=== PATIENT | female | born 1965 | race Caucasian/White ===

== ENCOUNTER 2017-06-25 18:42 | Emergency (ER) | payer OTHER ==
[2017-06-25] MEDS ORDERED: ONDANSETRON 4 MG/2 ML VIAL IVP ONE (20:21)
[2017-06-25] MEDS ORDERED: ALBUTEROL 3 ML DEYVIAL IH ONE (20:22)
[2017-06-25] MEDS ORDERED: KETOROLAC 30 MG/1 ML SDV IVP ONE (20:27)
[2017-06-25] MEDS ORDERED: METOCLOPRAMIDE 10 MG/2 ML VIAL IVP ONE (20:27)
[2017-06-25] MEDS ORDERED: NS 1,000 ML IV ONE (20:27)
[2017-06-25] MEDS ORDERED: DEXAMETHASONE 10 MG/ML VIAL IVP ONE (20:27)
[2017-06-25] MEDS ORDERED: HYDROmorphONE/DILAUDID 1 MG/ML INJ IVP ONE (21:15)
--- NOTE | 2017-06-25 21:34 | EDPHY ---
H & P Time Seen by Provider: 06/25/17 20:17 HPI/ROS: HPI Headache. 52-year-old female by private vehicle with her . This patient has a long history of migraine headaches. She reports that her headaches usually resolve with Imitrex. She reports atypical gradual onset migraine headache which she describes as frontal and temporal, onset about 3 days ago. She reports that it has been waxing and waning in intensity. She reports that she has taken Imitrex several times for this headache and without resolution. She reports this evening the headache became more intense. She has had to be seen in our emergency department in the past for her headaches. She has had associated nausea and vomiting which is also typical of her migraine headaches. ROS: Constitutional: No fever, no chills. No weakness. Eyes: No discharge. No changes in vision. ENT: No sore throat. No nasal congestion or rhinorrhea. Respiratory: No cough. No shortness of breath. Cardiac: No chest pain, no palpitations. Gastrointestinal: No abdominal pain, as above, no diarrhea. Genitourinary: No hematuria. No dysuria or increased frequency with urination. Musculoskeletal: No back pain. No neck pain. No myalgias or arthralgias. Skin: No rashes. Neurological: As above. No focal weakness or altered sensation. Past medical history: Migraine headaches, hypothyroid. Social history: Here with her . No alcohol. Nonsmoker. Physical Exam: General Appearance: Alert, no distress. This patient is responding to questions appropriately and in full sentences. This patient appears well- hydrated and well-nourished. Eyes: Pupils equal and round no pallor or injection. No lid edema, erythema or injection. Mild photophobia. No nystagmus. Neurological: Motor sensory function is grossly intact. Cranial nerves are normal. Gait is normal. Skin: Warm and dry, no rashes. Musculoskeletal: Neck is supple and nontender. No pain on flexion of the neck. Extremities are symmetrical. All joints range without pain or impingement. Psychiatric: No agitation. No depression. Database: EKG: Imaging: Procedures: Emergency department course: IV placed. She was placed on a monitor. She was started on IV normal saline with 1 L to be given over the next hour. She was initially given 10 mg of IV Decadron, 10 mg of IV Reglan, 25 mg of IV Benadryl and 30 mg of IV Toradol. She has no contraindications to NSAIDs. No history of renal dysfunction or peptic ulcer disease. 9:15 p.m., patient re-evaluated. She states that she is feeling better. She still has some right frontal headache. She was given 0.5 mg of IV hydromorphone. 9:45 p.m., patient re-evaluated. She reports she feels much better. Reports resolution of her headache. She feels comfortable at this time going home with her . Follow-up and return to emergency department precautions discussed with the both of them. All of their questions were answered. The patient was discharged home in good condition with her who is driving. Differential Diagnosis: The differential diagnosis on this patient includes but is not limited to migraine headache. Subarachnoid hemorrhage, meningitis, encephalitis, cavernous sinus thrombosis, sagittal sinus thrombosis unlikely. This represents a partial list of diagnoses considered. These considerations are based on history, physical exam, past history, reassessment and diagnostic testing. Smoking Status: Never smoked Constitutional: Initial Vital Signs Temperature (C) 36.9 C 06/25/17 19:09 Heart Rate 74 06/25/17 19:09 Respiratory Rate 18 06/25/17 19:09 Blood Pressure 156/76 H 06/25/17 19:09 O2 Sat (%) 95 06/25/17 19:09 O2 Delivery Mode Room Air Allergies/Adverse Reactions: No Known Allergies Allergy (Unverified 04/30/10 12:28) Home Medications: Medication Instructions Recorded Flexeril 04/30/10 IMITREX 04/30/10 SYNTHROID 04/30/10 oxyCODONE/APAP 5/325 [Percocet 5 mg PO Q4-6PRN PRN #10 tab 04/30/10 5/325] Ondansetron Odt [Zofran Odt] 4 mg PO Q4PRN PRN #2 tab 04/09/11 oxyCODONE/APAP 5/325 [Percocet 1 tab PO Q4-6PRN PRN #20 tab 04/09/11 5/325 (*)] Medical Decision Making - Data Points Medications Given: Discontinued Medications Albuterol (Proventil Neb) 6 ml IH EDNOW ONE Stop: 06/25/17 20:23 Last Admin: 09/08/17 20:43 Dose: Not Given Dexamethasone (Decadron Injection) 10 mg IVP EDNOW ONE Stop: 06/25/17 20:28 Last Admin: 06/25/17 20:36 Dose: 10 mg Diphenhydramine HCl (Benadryl Injection) 25 mg IVP EDNOW ONE Stop: 06/25/17 20:28 Last Admin: 06/25/17 20:36 Dose: 25 mg Hydromorphone HCl (Dilaudid) 0.5 mg IVP EDNOW ONE Stop: 06/25/17 21:16 Last Admin: 06/25/17 21:23 Dose: 0.5 mg Sodium Chloride (Ns) 1,000 mls @ 0 mls/hr IV ONCE ONE; Wide Open PRN Reason: Protocol Stop: 06/25/17 20:28 Last Admin: 06/25/17 20:32 Dose: 1,000 mls Ketorolac Tromethamine (Toradol) 30 mg IVP EDNOW ONE Stop: 06/25/17 20:28 Last Admin: 06/25/17 20:36 Dose: 30 mg Metoclopramide HCl (Reglan Injection) 10 mg IVP EDNOW ONE Stop: 06/25/17 20:28 Last Admin: 06/25/17 20:36 Dose: 10 mg Ondansetron HCl (Zofran) 4 mg IVP EDNOW ONE Stop: 06/25/17 20:22 Last Admin: 06/25/17 20:31 Dose: 4 mg Departure - Departure Disposition: Home, Routine, Self-Care Clinical Impression: Headache Condition: Good Instructions: Migraine Headache (ED) Additional Instructions: Read and follow provided instructions. Follow-up with Neurology, Dr. Marco Escoto, next week for re-evaluation and ongoing management of your migraine headaches. Call his office on Wednesday morning for appointment time. You can also see anyone of his partners. Return to the emergency department for return of headache, fever, neck pain, vomiting, worsening symptoms or other serious concerns. Referrals: Marco Escoto MD [Medical Doctor] - As per Instructions
[2017-06-25 22:16] VITALS: BP 108/65; PULSE 76; RESP 16; TEMP 98.2; O2SAT 93
== END 2017-06-25 22:16 | disposition home or self-care (01) ==
DX: R51 Headache (principal); E86.9 Volume depletion, unspecified
CPT/HCPCS: 96374; J1100; J1170; J1200; J1885; J2405; J2765